=== PATIENT | male | born 1985 | race Caucasian/White ===

== ENCOUNTER 2025-03-19 04:34 | Emergency (ER) | payer OTHER ==
[~2025-03-19] VITALS: Ht 165.1 cm; Wt 73.0 kg
[2025-03-19 04:37] VITALS: TEMP 36.9; O2SAT 99
[2025-03-19] MEDS: TETANUS, DIPHTHERIA, PERTUSSIS VAC/PF 0.5ML (>10YR OLD) IM ONE (05:35)
[2025-03-19 05:42] VITALS: BP 114/68; PULSE 74; RESP 18; O2SAT 100
== END 2025-03-19 05:43 ==
LOC: ER 04:34
DX: S61.512A Laceration without foreign body of left wrist, initial encounter (principal); T75.4XXA Electrocution, initial encounter; J45.909 Unspecified asthma, uncomplicated; X58.XXXA Exposure to other specified factors, initial encounter; Y93.89 Activity, other specified; Y92.89 Other specified places as the place of occurrence of the external cause; Y99.8 Other external cause status
CPT/HCPCS: 90471; 90715; 99283